=== PATIENT | male | born 1940 | race Caucasian/White ===

== ENCOUNTER → 2018-03-07 07:54 | Outpatient (CLI) | payer MEDICARE, OTHER, SELFPAY ==
[2018-03-07 09:28] LABS: ALB/GLOB Ratio 1.3 RATIO (0.9-2.4); AST(SGOT) 36 U/L (15-37); Alanine Aminotransfer ALT/SGPT 38 U/L (16-61); Albumin, Serum 4.1 g/dL (3.2-5.0); Alkaline Phosphatase 52 U/L (45-117); Anion Gap 8 (5-15); BUN 10 mg/dL (7-18); BUN/Creat Ratio 14.7 RATIO (10-20); Calcium,Total 8.3 mg/dL (8.5-10.1); Chloride 105 mmol/L (98-107); Cholesterol 133 mg/dL (200); Creatinine, Serum 0.68 mg/dL (0.70-1.30); EST Glomerular Filtration Rate 121 mL/min (>60); Est Glom Filt Rate - Afr Amer 146 mL/min (>60); Globulin 3.1 g/dL (2.2-4.2); Glucose 85 mg/dL (74-106); High Density Lipoprotein 46 mg/dL; Potassium 3.8 mmol/L (3.5-5.1); Protein, Total 7.2 g/dL (6.4-8.2); Sodium Level 142 mmol/L (136-145); Triglycerides 121 mg/dL; Very Low Density Lipoprotein 24 mg/dL (5-40)
[2018-03-07 10:11] LABS: Hemoglobin A1c 8.1 % (4.2-6.3)
== END ==
PROVIDERS: Family Provider Family Medicine; PCP Family Medicine; Visit Provider Family Medicine
DX: E11.9 Type 2 diabetes mellitus without complications (principal); E78.5 Hyperlipidemia, unspecified; I10 Essential (primary) hypertension
CPT/HCPCS: 36415; 80053; 80061; 83036

== ENCOUNTER → 2018-06-14 08:07 | Outpatient (CLI) | payer MEDICARE, OTHER, SELFPAY ==
[2018-06-14 09:17] LABS: Hemoglobin A1c 8.3 % (4.2-6.3)
== END ==
PROVIDERS: Family Provider Family Medicine; PCP Family Medicine; Visit Provider Family Medicine
DX: E11.9 Type 2 diabetes mellitus without complications (principal); Z79.4 Long term (current) use of insulin
CPT/HCPCS: 36415; 83036

== ENCOUNTER → 2018-09-09 08:42 | Outpatient (CLI) | payer MEDICARE, OTHER, SELFPAY ==
[2018-09-09 09:49] LABS: Hemoglobin A1c 7.8 % (4.2-6.3)
[2018-09-09 10:03] LABS: Microalbumin,Random Urine 51.4 mg/L (NO RANGE EST.); Microalbumin:Creatinine Ratio 31.3 mg/g CRE (<30 mg/g CRE)
[2018-09-09 10:04] LABS: ALB/GLOB Ratio 1.2 RATIO (0.9-2.4); AST(SGOT) 24 U/L (15-37); Alanine Aminotransfer ALT/SGPT 35 U/L (16-61); Albumin, Serum 3.8 g/dL (3.2-5.0); Alkaline Phosphatase 53 U/L (45-117); Anion Gap 7 (5-15); BUN 10 mg/dL (7-18); Calcium,Total 8.7 mg/dL (8.5-10.1); Chloride 103 mmol/L (98-107); Creatinine, Serum 0.77 mg/dL (0.70-1.30); EST Glomerular Filtration Rate 105 mL/min (>60); Est Glom Filt Rate - Afr Amer 127 mL/min (>60); Globulin 3.3 g/dL (2.2-4.2); Glucose 184 mg/dL (74-106); Potassium 4.4 mmol/L (3.5-5.1); Protein, Total 7.1 g/dL (6.4-8.2); Sodium Level 140 mmol/L (136-145)
== END ==
PROVIDERS: Family Provider Family Medicine; PCP Family Medicine; Referring Provider Family Medicine; Visit Provider Family Medicine
DX: E11.9 Type 2 diabetes mellitus without complications (principal); Z79.4 Long term (current) use of insulin
CPT/HCPCS: 36415; 80053; 82043; 82570; 83036

== ENCOUNTER → 2019-02-22 09:00 | Outpatient (CLI) | payer MEDICARE, OTHER, SELFPAY ==
[2019-02-22 10:11] LABS: Hemoglobin A1c 7.9 % (4.2-6.3)
[2019-02-22 10:36] LABS: ALB/GLOB Ratio 1.3 RATIO (0.9-2.4); AST(SGOT) 42 U/L (15-37); Alanine Aminotransfer ALT/SGPT 42 U/L (16-61); Alkaline Phosphatase 55 U/L (45-117); Anion Gap 6 (5-15); BUN 7 mg/dL (7-18); BUN/Creat Ratio 9.4 RATIO (10-20); Calcium,Total 8.5 mg/dL (8.5-10.1); Chloride 107 mmol/L (98-107); Cholesterol 125 mg/dL (200); Creatinine, Serum 0.74 mg/dL (0.70-1.30); EST Glomerular Filtration Rate 109 mL/min (>60); Est Glom Filt Rate - Afr Amer 131 mL/min (>60); Globulin 3.1 g/dL (2.2-4.2); Glucose 116 mg/dL (74-106); High Density Lipoprotein 46 mg/dL; Potassium 3.9 mmol/L (3.5-5.1); Protein, Total 7.1 g/dL (6.4-8.2); Sodium Level 140 mmol/L (136-145); Triglycerides 111 mg/dL; Very Low Density Lipoprotein 22 mg/dL (5-40)
== END ==
PROVIDERS: Family Provider Family Medicine; PCP Family Medicine; Referring Provider Family Medicine; Visit Provider Family Medicine
DX: E78.2 Mixed hyperlipidemia (principal); E11.9 Type 2 diabetes mellitus without complications; Z79.4 Long term (current) use of insulin
CPT/HCPCS: 36415; 80053; 80061; 83036

== ENCOUNTER → 2019-03-17 09:31 | Outpatient (CLI) | payer MEDICARE, OTHER, SELFPAY ==
[2019-03-17 10:15] LABS: Amphetamine Urine VISTA NEGATIVE (<1000 ng/mL); Barbiturate Urine VISTA NEGATIVE (< 200 ng/mL); Benzodiazepine Urine VISTA NEGATIVE (< 200 ng/mL); Cocaine Urine VISTA NEGATIVE (< 300 ng/mL); Ecstacy Urine VISTA NEGATIVE (< 500 ng/mL); Methadone Urine VISTA NEGATIVE (< 300 ng/mL); PCP Urine VISTA NEGATIVE (< 25 ng/mL); THC Urine VISTA NEGATIVE (< 50 ng/mL); Vista UDS pH Range 5
== END ==
PROVIDERS: Family Provider Family Medicine; PCP Family Medicine; Referring Provider Family Medicine; Visit Provider Family Medicine
DX: M48.061 Spinal stenosis, lumbar region without neurogenic claudication (principal); Z51.81 Encounter for therapeutic drug level monitoring
CPT/HCPCS: 80307

== ENCOUNTER 2019-04-08 21:29 | Emergency (ER) | payer MEDICARE, OTHER, SELFPAY ==
[2019-04-08 21:29] VITALS: BP 160/82; PULSE 101; RESP 18; TEMP 36.9; O2SAT 94; BMI 34.0
--- NOTE | 2019-04-08 22:08 | CT_ITS ---
STUDY: CT ABDOMEN AND PELVIS WITHOUT CONTRAST REASON FOR EXAM: Male, 78 years old. Abdominal pain and bloating RADIATION DOSAGE (If Supplied By Facility): CTDIvol = ( 17.71 ) mGy, DLP = ( 947.12 ) mGycm TECHNIQUE: Transaxial images were obtained from the dome of the diaphragm to the symphysis pubis without oral contrast, and without intravenous contrast. Sagittal and coronal images were reconstructed. Individualized dose optimization techniques were used for this CT. COMPARISON: None. FINDINGS: The visualized lung bases are unremarkable. The visualized portions of the heart are within normal limits. There is decreased attenuation of the liver consistent with steatosis. Normal gallbladder and extrahepatic biliary system. There are multiple benign calcified granulomata of the spleen. Normal pancreas. 15 mm left adrenal adenoma. Bilateral renal cysts. Normal visualized stomach. 17 mm duodenal diverticulum. There are multiple colonic diverticula consistent with diverticulosis. The appendix is visualized and appears normal. Normal abdominal aorta. Normal inferior vena cava. Normal retroperitoneum. Normal urinary bladder. Prostatomegaly and prostate calcifications. Normal abdominal wall. Normal osseous structures. CT/Abdomen/Pelvis without Cont IMPRESSION: No evidence of acute intestinal pathology or acute obstructive uropathy. 15 mm left adrenal adenoma. 17 mm duodenal diverticulum. Electronically Signed: Harrison Grove MD at 23:13 EDT Tel , Service support ,
--- NOTE | 2019-04-08 22:09 | ED.VISSUMM ---
- ER Visit Summary Date of Service: 04/08/19 Chief Complaint: Abdominal pain History of Present Illness: The patient is a 78 M who presents with abdominal pain that has been getting worse over the past 3 days. Patient states he has been having some nausea and vomiting over the past week. Patient denies any hematemesis or coffee-ground emesis. Patient denies any diarrhea, melena, or hematochezia. Patient states his pain is dull and aching. Patient states his pain is cramping at times. Patient admits to subjective fevers and chills. Patient states his pain is diffuse across his abdomen. Patient states he had similar symptoms while he was in [place] several months ago but was never evaluated at that time. Physical Examination: Vital signs are stable. Patient is afebrile. Patient is in no acute distress. Oral mucosa is pink and moist. Neck is supple. Trachea is midline. There is no JVD noted. Heart was regular rate and rhythm. Lungs are clear and equal bilateral. Abdomen is soft. Bowel sounds are normal. There is mild diffuse tenderness. There is no rebound or guarding noted. Skin is warm dry. Cranial nerves II through XII are intact. There are no focal motor or sensory deficits noted. The remaining physical exam is within normal limits. Test Results: CBC was normal. Comprehensive metabolic profile showed an elevated glucose of 342. Total bilirubin was slightly elevated at 1.6. AST and ALT were both slightly elevated at 94 and 100 respectively. Urinalysis does not show any evidence of urinary tract infection. CT scan of the abdomen and pelvis was obtained. There is no acute intra-abdominal pathology noted. Emergency Department Course and Treatment: Patient was given IV fluids and Zofran here. Patient felt better on reevaluation. Patient was instructed to eat a bland diet. Patient was instructed to follow-up with his primary care physician in 3 to 5 days. Patient and family understood and were agreeable with the plan. All questions were answered. Disposition: Discharge home Impression: Abdominal pain This note was generated with [employer] dictation software. It may contain incorrect words, spelling, and punctuation that were not noted in review of the chart prior to signing ED Disposition - Plan for ED Patient: Disposition: Home or Assisted Living Diagnosis: Abdominal pain Instructions: ED Abdominal Pain Unkn Cause Referrals: Harrison Doss MD [Primary Care Provider] - 3-5 Days
[2019-04-08 22:19] LABS: Red Blood Cells-Urine 0 SEEN /hpf (0-5); White Blood Cells 0 SEEN /hpf (0-5)
[2019-04-08] MEDS: Ondansetron 4 MG/2 ML Vial IV (22:21)
[2019-04-08] MEDS: 0.9% Normal Saline 1,000 ML 1000 ML IV (22:21)
[2019-04-08 22:26] LABS: Absolute Lymphocyte Count 0.94 X10^3/ul (0.83-4.51); Absolute Neutrophil Count 4.8 X10^3/uL (2.0-7.7); Basophil# 0.02 X10^3/uL; Basophil% 0.3 % (0-1); Eosinophil# 0.18 X10^3/uL; Eosinophils% 2.5 % (0-5); Hematocrit 41.6 % (40-54); Hemoglobin 14.8 g/dl (13.0-16.5); Lymphocyte # 0.94 X10^3/ul (4.0); Lymphocyte % 13.1 % (19-41); Mean Corp Hgb Conc 35.6 g/gl (32-36); Mean Corpuscular Hgb 31.6 pg (27.0-32.0); Mean Corpuscular Volume 88.9 fL (80-94); Mean Platelet Vol. 10.3 fl (6.2-12.0); Monocyte# 1.22 X10^3/uL; Monocyte% 16.9 % (0-10); Neutrophil # 4.83 X10^3/uL (2.7-7.7); Neutrophil % 67.1 % (47-70); Platelet Count 171 K/mm3 (150-450); RBC Distribution Width CV 12.3 % (11.6-14.6); RBC Distribution Width SD 39.5 fl (35.1-43.9); Red Blood Count 4.68 M/mm3 (4.6-6.2); White Blood Count 7.2 K/mm3 (4.4-11.0)
[2019-04-08 22:27] LABS: Color, Urine Yellow (Yellow); Glucose, Dipstick 1000 mg/dl (Normal); Ketone-Dipstick 5 mg/dl (Negative); Leukocyte Esterase-Dipstick Negative /ul (Negative); Nitrite-Dipstick Negative (Negative); Occult Blood-Urine 10 /ul (Negative); Protein-Dipstick 30 mg/dl (Negative); Specific Gravity, Urine 1.015 (1.002-1.030); Urine Bilirubin Dipstick Negative (Negative); Urine Clarity Clear (Clear); Urine Urobilinogen 4 mg/dl (Normal)
[2019-04-08 22:28] LABS: POSITIVE COUNT NO; POSITIVE DIFFERENTIAL NO; POSITIVE MORPHOLOGY NO
[2019-04-08 22:28] LABS: Squamous Epithelial Cells - UA 0-5 SEEN /hpf (0-5)
[2019-04-08 22:29] LABS: Bacteria RARE /hpf (None Seen); Mucous, Urine RARE /hpf (<or=2+)
[2019-04-08 22:36] LABS: ALB/GLOB Ratio 0.8 RATIO (0.9-2.4); AST(SGOT) 94 U/L (15-37); Alanine Aminotransfer ALT/SGPT 100 U/L (16-61); Albumin, Serum 3.4 g/dL (3.2-5.0); Alkaline Phosphatase 96 U/L (45-117); Anion Gap 9 (5-15); BUN 12 mg/dL (7-18); BUN/Creat Ratio 11.9 RATIO (10-20); Chloride 97 mmol/L (98-107); Creatinine, Serum 1.01 mg/dL (0.70-1.30); EST Glomerular Filtration Rate 76 mL/min (>60); Est Glom Filt Rate - Afr Amer 92 mL/min (>60); Estimated Creatinine Clearance 62.22 ml/min; Globulin 4.5 g/dL (2.2-4.2); Glucose 342 mg/dL (74-106); Lipase 321 U/L (73-393); Potassium 4.2 mmol/L (3.5-5.1); Protein, Total 7.9 g/dL (6.4-8.2); Sodium Level 136 mmol/L (136-145)
[2019-04-08 23:47] VITALS: BP 148/67; PULSE 63; RESP 19; O2SAT 98
== END 2019-04-08 23:48 | disposition home or self-care (01) ==
PROVIDERS: Emergency Provider Emergency Medicine; Family Provider Family Medicine; PCP Family Medicine
DX: R10.9 Unspecified abdominal pain (principal); R11.2 Nausea with vomiting, unspecified; I10 Essential (primary) hypertension; E11.9 Type 2 diabetes mellitus without complications; Z79.4 Long term (current) use of insulin; Z79.84 Long term (current) use of oral hypoglycemic drugs; Z79.899 Other long term (current) drug therapy
CPT/HCPCS: 74176; 80053; 81001; 83690; 85025; 96361; 96374; 99284; A4216; J2405

== ENCOUNTER 2019-04-12 11:06 | Emergency (ER) | payer MEDICARE, OTHER, SELFPAY ==
[2019-04-12 11:07] VITALS: BP 106/71; PULSE 103; RESP 16; TEMP 36.8; O2SAT 96; BMI 33.9
--- NOTE | 2019-04-12 11:46 | US_ITS ---
STUDY: ABDOMINAL ULTRASOUND - RIGHT UPPER QUADRANT REASON FOR VISIT: Male, 78 years old. One-week history of generalized abdominal pain. TECHNIQUE: Ultrasound evaluation of the right upper quadrant was performed with real-time and static oglesby-scale imaging. TECHNICAL QUALITY: Adequate. COMPARISON: Comparison is made with prior CT scan the abdomen dated April 08, 2019. FINDINGS: Liver: The liver is enlarged and measures 19.3 cm. There is increased echogenicity consistent with fatty infiltration. The bile ducts are within normal limits. There is hepatic color flow. The direction of portal flow is hepatopetal. There is no demonstrated mass lesion. Gallbladder: Normal distended gallbladder. The gallbladder wall measures 2.9 mm. There is a negative sonographic Reardon's sign. There is no pericholecystic fluid. There are no gallstones. Common Bile Duct (C.B.D.): The common bile duct measures 4.6 mm. Pancreas: There is nonvisualization of the pancreas due to overlying bowel gas. Right Kidney: Normal size of the right kidney. The right kidney measures 11.9 cm x 5.8 cm x 5.9 cm. Normal renal cortex. The right cortex measures 2.0 cm. There is a 2.1 cm x 2.2 cm x 2.2 cm cyst. There is no right hydronephrosis. US/Gallbladder IMPRESSION: Hepatomegaly and fatty infiltration of the liver. Right renal cyst. Electronically Signed: Valentin Cordon, at 13:03 EDT , Service support ,
--- NOTE | 2019-04-12 11:47 | EKG12_ITS ---
Test Reason : VOMITTING Blood Pressure : / mmHG Vent. Rate : 077 BPM Atrial Rate : 077 BPM P-R Int : 180 ms QRS Dur : 080 ms QT Int : 398 ms P-R-T Axes : 032 041 052 degrees QTc Int : 450 ms Normal sinus rhythm Nonspecific ST abnormality Abnormal ECG Confirmed by MILES MISHRA ([id number]), editorial director ERICK IZAGUIRRE ([id number]) on 04/20/2019 9:23:43 AM Referred By: ARTHUR Confirmed By:MILES MISHRA
[2019-04-12] MEDS: 0.9% Normal Saline 1,000 ML 1000 ML IV (12:04)
[2019-04-12 12:08] LABS: Absolute Lymphocyte Count 0.64 X10^3/ul (0.83-4.51); Absolute Neutrophil Count 4.4 X10^3/uL (2.0-7.7); Basophil# 0.02 X10^3/uL; Basophil% 0.3 % (0-1); Eosinophil# 0.26 X10^3/uL; Eosinophils% 4.1 % (0-5); Hematocrit 40.5 % (40-54); Hemoglobin 14.2 g/dl (13.0-16.5); Lymphocyte # 0.64 X10^3/ul (4.0); Lymphocyte % 10.1 % (19-41); Mean Corp Hgb Conc 35.1 g/gl (32-36); Mean Corpuscular Hgb 30.9 pg (27.0-32.0); Mean Platelet Vol. 10.1 fl (6.2-12.0); Monocyte# 0.95 X10^3/uL; Monocyte% 15.1 % (0-10); Neutrophil # 4.43 X10^3/uL (2.7-7.7); Neutrophil % 70.2 % (47-70); POSITIVE COUNT NO; POSITIVE DIFFERENTIAL NO; POSITIVE MORPHOLOGY NO; Platelet Count 221 K/mm3 (150-450); RBC Distribution Width CV 12.1 % (11.6-14.6); RBC Distribution Width SD 38.6 fl (35.1-43.9); White Blood Count 6.3 K/mm3 (4.4-11.0)
[2019-04-12 12:11] VITALS: BP 135/73; PULSE 82; RESP 16; O2SAT 97
[2019-04-12 12:14] LABS: Red Blood Cells-Urine 0 SEEN /hpf (0-5)
[2019-04-12 12:16] LABS: Color, Urine Yellow (Yellow); Glucose, Dipstick 250 mg/dl (Normal); Ketone-Dipstick 15 mg/dl (Negative); Leukocyte Esterase-Dipstick 25 /ul (Negative); Nitrite-Dipstick Negative (Negative); Occult Blood-Urine Negative /ul (Negative); Protein-Dipstick 30 mg/dl (Negative); Specific Gravity, Urine 1.025 (1.002-1.030); Urine Clarity Sl. Cloudy (Clear); Urine Urobilinogen 8 mg/dl (Normal)
[2019-04-12 12:18] LABS: Urine Bilirubin Dipstick 1 mg/dL (Negative)
[2019-04-12 12:21] LABS: Bedside Glucose 221 mg/dL (70-110)
[2019-04-12 12:28] LABS: ALB/GLOB Ratio 0.8 RATIO (0.9-2.4); AST(SGOT) 26 U/L (15-37); Alanine Aminotransfer ALT/SGPT 50 U/L (16-61); Albumin, Serum 3.1 g/dL (3.2-5.0); Alkaline Phosphatase 85 U/L (45-117); Anion Gap 8 (5-15); BUN 14 mg/dL (7-18); BUN/Creat Ratio 14.8 RATIO (10-20); Calcium,Total 8.7 mg/dL (8.5-10.1); Chloride 99 mmol/L (98-107); Creatinine, Serum 0.94 mg/dL (0.70-1.30); EST Glomerular Filtration Rate 82 mL/min (>60); Est Glom Filt Rate - Afr Amer 100 mL/min (>60); Estimated Creatinine Clearance 66.86 ml/min; Globulin 4.1 g/dL (2.2-4.2); Glucose 253 mg/dL (74-106); Lipase 75 U/L (73-393); Potassium 4.4 mmol/L (3.5-5.1); Protein, Total 7.2 g/dL (6.4-8.2); Sodium Level 136 mmol/L (136-145)
[2019-04-12 12:29] LABS: Bacteria 1+ /hpf (None Seen); Mucous, Urine 2+ /hpf (<or=2+); Squamous Epithelial Cells - UA 0-5 SEEN /hpf (0-5); White Blood Cells 0-5 SEEN /hpf (0-5)
--- NOTE | 2019-04-12 13:02 | ED.VISSUMM ---
- ER Visit Summary Date of Service: 04/12/19 Chief Complaint: Abdominal pain History of Present Illness: The patient is a [address] Doss. Patient reports that he had an episode of abdominal pain 4 days ago that actually resolved 3 days ago. However, he has continued to have a poor appetite now feels generalized weakness. States his blood sugars been running high as well. Typically it is 120. Yesterday it was 421. Patient denies any nausea, vomiting, or diarrhea. He denies any history of fatty food intolerance. He does report that he had a cough for the past 8 days. This is nonproductive. He has no chest pain or shortness of breath. Physical Examination: Vitals: Stable. Afebrile. General: Well-nourished and well-developed. Head: Normocephalic atraumatic. Neck: Supple, no lymphadenopathy. No JVD. Nontender. Cardiovascular: Regular rate and rhythm. No murmurs. Respiratory: No respiratory distress. Clear to auscultation bilaterally. Abdominal: Soft, minimal tenderness to palpation in the right upper quadrant, nondistended, normal bowel sounds. No guarding, rebound, or peritoneal signs. Back: Nontender. Extremities: Nontender, no edema. Skin: Normal color, no rash. Neurologic: Alert and oriented ?3. Cranial nerves II through XII are intact. Normal strength and sensation. Psych: Normal affect. Test Results: CBC shows segmented neutrophils of 70, lymphocytes of 10, monocytes 15. Chem-7 shows a glucose 253. Serum ketones are negative. LFTs are marked for an albumin 3.1. Lipase is normal. UA is negative. Troponin is negative. EKG is sinus at [address] changes. Unchanged from prior EKG. Clinical Impression(s) from Imaging Studies Gallbladder Ultrasound 04/12/19 11:46 IMPRESSION: Hepatomegaly and fatty infiltration of the liver. Right renal cyst. Electronically Signed: Valentin Cordon, at 13:03 EDT , Service support , Emergency Department Course and Treatment: Patient refused pain or nausea medications. He was given a liter of normal saline and feels much improved. Treatment Plan: Discussed the patient at this time I do not have an explanation for his loss of appetite and food not tasting normal. He will be discharged instructions to push fluids. Follow-up Dr. Doss in 1 to 2 days for another exam. Return to the emergency department for any worsening symptoms. Disposition: To home in improved and stable condition. Impression: 1. Dehydration. 2. Hyperglycemia with history of [id number] diabetes mellitus. This note was generated with [employer] dictation software. It may contain incorrect words, spelling, and punctuation that were not noted in review of the chart prior to signing ED Disposition - Plan for ED Patient: Instructions: ED Dehydration Referrals: Harrison Doss MD [Primary Care Provider] - 1-2 Days if not improving
[2019-04-12 14:54] VITALS: BP 136/71; PULSE 72; RESP 18; O2SAT 98
== END 2019-04-12 14:55 | disposition home or self-care (01) ==
PROVIDERS: Emergency Provider Emergency Medicine; Family Provider Family Medicine; PCP Family Medicine
DX: E86.0 Dehydration (principal); E10.65 Type 1 diabetes mellitus with hyperglycemia; I10 Essential (primary) hypertension; Z79.82 Long term (current) use of aspirin; Z79.84 Long term (current) use of oral hypoglycemic drugs; Z79.899 Other long term (current) drug therapy
CPT/HCPCS: 76705; 80053; 81001; 82009; 82962; 83690; 84484; 85025; 93005; 96360; 96361; 99284; J7030; A4216

== ENCOUNTER → 2019-09-26 08:31 | Outpatient (CLI) | payer MEDICARE, OTHER, SELFPAY ==
[2019-09-26 10:01] LABS: ALB/GLOB Ratio 1.1 RATIO (0.9-2.4); AST(SGOT) 36 U/L (15-37); Alanine Aminotransfer ALT/SGPT 42 U/L (16-61); Alkaline Phosphatase 55 U/L (45-117); Anion Gap 9 (5-15); BUN 10 mg/dL (7-18); BUN/Creat Ratio 11.4 RATIO (10-20); Calcium,Total 8.7 mg/dL (8.5-10.1); Chloride 103 mmol/L (98-107); Cholesterol 132 mg/dL (200); Creatinine, Serum 0.87 mg/dL (0.70-1.30); EST Glomerular Filtration Rate 90 mL/min (>60); Est Glom Filt Rate - Afr Amer 109 mL/min (>60); Globulin 3.5 g/dL (2.2-4.2); Glucose 197 mg/dL (74-106); High Density Lipoprotein 43 mg/dL; Potassium 4.1 mmol/L (3.5-5.1); Protein, Total 7.5 g/dL (6.4-8.2); Sodium Level 139 mmol/L (136-145); Triglycerides 173 mg/dL; Very Low Density Lipoprotein 35 mg/dL (5-40)
[2019-09-26 10:06] LABS: Hemoglobin A1c 8.4 % (4.2-6.3)
== END ==
LOC: LAB.FUTURE 08:36 → LAB 09-27 06:19
PROVIDERS: Family Provider Family Medicine; PCP Family Medicine; Referring Provider Family Medicine; Visit Provider Family Medicine
DX: E11.9 Type 2 diabetes mellitus without complications (principal); Z79.4 Long term (current) use of insulin; E78.2 Mixed hyperlipidemia
CPT/HCPCS: 36415; 80053; 80061; 83036

== ENCOUNTER → 2020-05-22 08:39 | Outpatient (CLI) | payer MEDICARE, OTHER, SELFPAY ==
[2020-05-22 09:36] LABS: Hemoglobin A1c 8.6 % (3.8-5.6)
[2020-05-22 09:44] LABS: ALB/GLOB Ratio 1.2 RATIO (0.9-2.4); AST(SGOT) 29 U/L (15-37); Alanine Aminotransfer ALT/SGPT 46 U/L (16-61); Albumin, Serum 3.9 g/dL (3.2-5.0); Alkaline Phosphatase 53 U/L (45-117); Anion Gap 7 (5-15); BUN 13 mg/dL (7-18); BUN/Creat Ratio 15.5 RATIO (10-20); Calcium,Total 8.7 mg/dL (8.5-10.1); Chloride 103 mmol/L (98-107); Creatinine, Serum 0.84 mg/dL (0.70-1.30); EST Glomerular Filtration Rate 94 mL/min (>60); Est Glom Filt Rate - Afr Amer 114 mL/min (>60); Globulin 3.3 g/dL (2.2-4.2); Glucose 126 mg/dL (74-106); Potassium 4.1 mmol/L (3.5-5.1); Protein, Total 7.2 g/dL (6.4-8.2); Sodium Level 140 mmol/L (136-145)
== END ==
PROVIDERS: PCP Family Medicine; Visit Provider Family Medicine
DX: E11.9 Type 2 diabetes mellitus without complications (principal); Z79.4 Long term (current) use of insulin
CPT/HCPCS: 36415; 80053; 83036

== ENCOUNTER → 2020-08-27 07:58 | Outpatient (CLI) | payer MEDICARE, OTHER, SELFPAY ==
[2020-08-27 08:58] LABS: Absolute Lymphocyte Count 1.39 X10^3/uL (0.83-4.51); Absolute Neutrophil Count 3.3 X10^3/uL (2.0-7.7); Basophil# 0.05 X10^3/uL; Basophil% 0.9 % (0-1); Eosinophil# 0.21 X10^3/uL; Eosinophils% 3.7 % (0-5); Hematocrit 44.7 % (40-54); Hemoglobin 15.2 g/dL (13.0-16.5); Lymphocyte # 1.39 X10^3/ul (4.0); Lymphocyte % 24.7 % (19-41); Mean Corpuscular Hgb 30.5 pg (27.0-32.0); Mean Corpuscular Volume 89.8 fL (80-94); Monocyte# 0.63 X10^3/uL; Monocyte% 11.2 % (0-10); NRBC Flagged by Analyzer 0 % (0-5); Neutrophil # 3.33 X10^3/uL (2.7-7.7); Neutrophil % 59.3 % (47-70); Platelet Count 217 K/mm3 (150-450); RBC Distribution Width CV 11.8 % (11.6-14.6); RBC Distribution Width SD 38.8 fl (35.1-43.9); Red Blood Count 4.98 M/mm3 (4.6-6.2); White Blood Count 5.6 K/mm3 (4.4-11.0)
[2020-08-27 09:25] LABS: Microalbumin,Random Urine 60.7 mg/L (NO RANGE EST.); Microalbumin:Creatinine Ratio 45.3 mg/g CRE (<30 mg/g CRE)
[2020-08-27 09:29] LABS: Cholesterol 132 mg/dL (200); High Density Lipoprotein 47 mg/dL; Triglycerides 144 mg/dL; Very Low Density Lipoprotein 29 mg/dL (5-40)
[2020-08-27 09:39] LABS: Hemoglobin A1c 7.8 % (3.8-5.6)
== END ==
PROVIDERS: PCP Family Medicine; Referring Provider Family Medicine; Visit Provider Family Medicine
DX: E11.9 Type 2 diabetes mellitus without complications (principal); Z79.4 Long term (current) use of insulin
CPT/HCPCS: 36415; 80061; 82043; 82570; 83036; 85025

== ENCOUNTER → 2021-02-27 08:52 | Outpatient (CLI) | payer MEDICARE, SELFPAY ==
[2021-02-27 09:54] LABS: Hemoglobin A1c 6.7 % (3.8-5.6)
[2021-02-27 10:09] LABS: Anion Gap 5 (5-15); BUN 9 mg/dL (7-18); BUN/Creat Ratio 11.6 RATIO (10-20); Chloride 107 mmol/L (98-107); Creatinine, Serum 0.78 mg/dL (0.70-1.30); EST Glomerular Filtration Rate 103 mL/min (>60); Est Glom Filt Rate - Afr Amer 124 mL/min (>60); Glucose 139 mg/dL (74-106); Potassium 3.8 mmol/L (3.5-5.1); Sodium Level 140 mmol/L (136-145)
== END ==
PROVIDERS: PCP Family Medicine; Visit Provider Family Medicine
DX: E11.9 Type 2 diabetes mellitus without complications (principal); Z79.4 Long term (current) use of insulin
CPT/HCPCS: 36415; 80048; 83036

== ENCOUNTER → 2021-09-16 07:32 | Outpatient (CLI) | payer MEDICARE, SELFPAY ==
[2021-09-16 08:44] LABS: Absolute Lymphocyte Count 1.28 X10^3/uL (0.83-4.51); Absolute Neutrophil Count 2.9 X10^3/uL (2.0-7.7); Basophil# 0.04 X10^3/uL; Basophil% 0.8 % (0-1); Eosinophil# 0.23 X10^3/uL; Eosinophils% 4.7 % (0-5); Lymphocyte # 1.28 X10^3/ul (0.83-4.51); Mean Corp Hgb Conc 34.1 g/dL (32-36); Mean Corpuscular Hgb 31.8 pg (27.0-32.0); Mean Corpuscular Volume 93.2 fL (80-94); Mean Platelet Vol. 9.8 fl (6.2-12.0); Monocyte# 0.48 X10^3/uL; Monocyte% 9.7 % (0-10); NRBC Flagged by Analyzer 0 % (0-5); Neutrophil # 2.89 X10^3/uL (2.7-7.7); Neutrophil % 58.6 % (47-70); Platelet Count 188 K/mm3 (150-450); RBC Distribution Width CV 11.8 % (11.6-14.6); RBC Distribution Width SD 40.7 fl (35.1-43.9); White Blood Count 4.9 K/mm3 (4.4-11.0)
[2021-09-16 09:06] LABS: Microalbumin,Random Urine 64.4 mg/L (NO RANGE EST.); Microalbumin:Creatinine Ratio 25.8 mg/g CRE (<30 mg/g CRE)
[2021-09-16 09:18] LABS: Hemoglobin A1c 6.5 % (3.8-5.6)
[2021-09-16 09:21] LABS: ALB/GLOB Ratio 1.1 RATIO (0.9-2.4); AST(SGOT) 23 U/L (15-37); Alanine Aminotransfer ALT/SGPT 29 U/L (16-61); Albumin, Serum 3.7 g/dL (3.2-5.0); Alkaline Phosphatase 50 U/L (45-117); Anion Gap 8 (5-15); BUN 10 mg/dL (7-18); BUN/Creat Ratio 11.2 RATIO (10-20); Calcium,Total 8.5 mg/dL (8.5-10.1); Chloride 105 mmol/L (98-107); Cholesterol 121 mg/dL (200); Creatinine, Serum 0.89 mg/dL (0.70-1.30); EST Glomerular Filtration Rate 88 mL/min (>60); Est Glom Filt Rate - Afr Amer 106 mL/min (>60); Globulin 3.4 g/dL (2.2-4.2); Glucose 103 mg/dL (74-106); High Density Lipoprotein 41 mg/dL; Potassium 3.7 mmol/L (3.5-5.1); Protein, Total 7.1 g/dL (6.4-8.2); Sodium Level 143 mmol/L (136-145); Triglycerides 120 mg/dL; Very Low Density Lipoprotein 24 mg/dL (5-40)
== END ==
PROVIDERS: PCP Family Medicine; Referring Provider Family Medicine; Visit Provider Family Medicine
DX: E11.9 Type 2 diabetes mellitus without complications (principal); Z79.4 Long term (current) use of insulin
CPT/HCPCS: 36415; 80053; 80061; 82043; 82570; 83036; 85025

== ENCOUNTER → 2022-03-17 | Outpatient (CLI) | payer MEDICARE, SELFPAY ==
[2022-03-17 09:20] LABS: Absolute Lymphocyte Count 1.18 X10^3/uL (0.83-4.51); Absolute Neutrophil Count 3.6 X10^3/uL (2.0-7.7); Basophil# 0.03 X10^3/uL; Basophil% 0.5 % (0-1); Eosinophils% 3.6 % (0-5); Hematocrit 40.9 % (40-54); Hemoglobin 14.1 g/dL (13.0-16.5); Lymphocyte # 1.18 X10^3/ul (0.83-4.51); Lymphocyte % 21.5 % (19-41); Mean Corp Hgb Conc 34.5 g/dL (32-36); Mean Corpuscular Hgb 32.4 pg (27.0-32.0); Mean Platelet Vol. 10.1 fl (6.2-12.0); Monocyte# 0.45 X10^3/uL; Monocyte% 8.2 % (0-10); NRBC Flagged by Analyzer 0 % (0-5); Neutrophil # 3.62 X10^3/uL (2.7-7.7); Platelet Count 194 K/mm3 (150-450); RBC Distribution Width CV 12.6 % (11.6-14.6); RBC Distribution Width SD 43.7 fl (35.1-43.9); Red Blood Count 4.35 M/mm3 (4.6-6.2); White Blood Count 5.5 K/mm3 (4.4-11.0)
[2022-03-17 09:39] LABS: Hemoglobin A1c 6.6 % (3.8-5.6)
[2022-03-17 09:43] LABS: Microalbumin,Random Urine 46.4 mg/L (NO RANGE EST.); Microalbumin:Creatinine Ratio 28.8 mg/g CRE (<30 mg/g CRE)
[2022-03-17 09:56] LABS: ALB/GLOB Ratio 1.2 RATIO (0.9-2.4); AST(SGOT) 17 U/L (15-37); Alanine Aminotransfer ALT/SGPT 20 U/L (16-61); Albumin, Serum 3.9 g/dL (3.2-5.0); Alkaline Phosphatase 49 U/L (45-117); Anion Gap 6 (5-15); BUN 7 mg/dL (7-18); BUN/Creat Ratio 7.8 RATIO (10-20); Calcium,Total 8.7 mg/dL (8.5-10.1); Chloride 105 mmol/L (98-107); Cholesterol 123 mg/dL (200); Creatinine, Serum 0.89 mg/dL (0.70-1.30); EST Glomerular Filtration Rate 87 mL/min (>60); Est Glom Filt Rate - Afr Amer 105 mL/min (>60); Globulin 3.3 g/dL (2.2-4.2); Glucose 115 mg/dL (74-106); High Density Lipoprotein 41 mg/dL; Protein, Total 7.2 g/dL (6.4-8.2); Sodium Level 139 mmol/L (136-145); Triglycerides 138 mg/dL; Very Low Density Lipoprotein 28 mg/dL (5-40)
== END | disposition home or self-care (01) ==
LOC: LAB 08:11
PROVIDERS: PCP Family Medicine; Referring Provider Family Medicine; Visit Provider Family Medicine
DX: E11.9 Type 2 diabetes mellitus without complications (principal); Z79.4 Long term (current) use of insulin
CPT/HCPCS: 36415; 80053; 80061; 82043; 82570; 83036; 85025

== ENCOUNTER 2024-12-03 14:43 | Inpatient (IN) | payer MEDICARE, SELFPAY ==
[2024-12-03 14:46] VITALS: BP 119/73; PULSE 102; RESP 18; TEMP 36.4; O2SAT 97; BMI 30.8
--- NOTE | 2024-12-03 15:04 | EDS_ITS ---
HPI History of Present Illness Chief Complaint: Hyperglycemia Informant: patient Onset/Context/Timing Onset: Today Context: Gradual Onset Timing: Continuous Quality: Weakness Location: Lower extremities, left worse than right Worsened by: Activity Relieved by: Rest Narrative Narrative: Patient presents with lower extremity weakness that began today. Patient states his left leg gave out. Patient states he fell. Daughter states that the patient's blood sugar was 353 when he fell. Patient admits to some nausea but denies any vomiting. Patient states his nausea began last night. Patient states he has also had a recent cough with some white sputum. Patient admits to some shortness of breath with exertion. Patient denies any fevers or chills. Patient denies any headaches. Patient denies any polyuria or polydipsia. [facility] Medical History (Updated 12/03/24 @ 18:[address] Wolfgang Rosa, DO) Lumbar spondylosis GERD (gastroesophageal reflux disease) BPH (benign prostatic hyperplasia) Hyperlipidemia Type 2 diabetes mellitus Hypertension Home Medications ?Medication ?Instructions ?Recorded ?Last Taken ?Type acetaminophen 500 mg tablet 500 mg PO Q8H PRN Pain 04/08/19 Unknown History (Tylenol Extra Strength) amitriptyline 25 mg tablet 25 mg PO QHS 04/08/19 Unknown History aspirin 81 mg chewable tablet 81 mg PO DAILY 04/08/19 Unknown History cyclobenzaprine 10 mg tablet 10 mg PO QHS PRN Spasms 04/08/19 Unknown History doxazosin 4 mg tablet 2 mg PO QHS 04/08/19 Unknown History insulin glargine 100 unit/mL (3 56 units subcut BID 04/08/19 Unknown History mL) subcutaneous pen (Lantus Solostar U-100 Insulin) lisinopril 20 mg tablet (Zestril) 20 mg PO DAILY 04/08/19 Unknown History meloxicam 15 mg tablet 15 mg PO DAILY 04/08/19 Unknown History metformin 500 mg tablet 1,000 mg PO BREAKFAST 04/08/19 Unknown History metformin 500 mg tablet 500 mg PO DINNER 04/08/19 Unknown History metformin 500 mg tablet 500 mg PO LUNCH 04/08/19 Unknown History ondansetron 4 mg disintegrating 4 mg PO Q8H PRN PRN Nausea #10 tabs 04/08/19 Unknown Rx tablet simvastatin 40 mg tablet 40 mg PO QHS 04/08/19 Unknown History tramadol 37.5 mg-acetaminophen 325 1 ea PO Q8H PRN Pain 04/08/19 Unknown History mg tablet (Ultracet) cyanocobalamin (vitamin B-12) 1,000 mcg PO DAILY 12/03/24 Unknown History 1,000 mcg tablet (Vitamin B-12) Allergy/AdvReac Type Severity Reaction Status Date / Time No Known Allergies Allergy Verified 12/03/24 14:46 Surgical History no surgical history no surgical history Social History Smoking Status: Never smoker ROS ROS ED Constitutional Constitutional ED: Denies chills or fever(s) Eyes Eyes: Denies blurry vision or change in vision ENT ENT ED: Denies rhinorrhea or sore throat Cardiovascular Cardiovascular: Denies chest pain or palpitations Respiratory/Chest Respiratory/Chest: Reports cough and dyspnea Gastrointestinal Gastrointestinal: Reports nausea; Denies vomiting Genitourinary Genitourinary ED: Denies dysuria or hematuria Musculoskeletal Musculoskeletal: Reports back pain; Denies neck pain Integumentary Denies abscess or rash Neurologic Neurologic: Reports weakness; Denies headache(s) Allergic/Immunologic Allergic/Immunologic ED: Denies mouth swelling or urticaria EXAM Physical Exam Const Vital Signs: 12/03/24 14:46 12/03/24 16:45 12/03/24 18:00 Temperature 97.5 F L Temperature Source Temporal Pulse Rate 102 H 73 73 Respiratory Rate 18 20 H 19 H Blood Pressure 119/73 139/68 H 137/72 H Blood Pressure Mean 88 91 93 Pulse Ox 97 97 97 Oxygen Delivery Method Room Air Room Air Room Air 12/03/24 18:06 Temperature 97.5 F L Temperature Source Pulse Rate 73 Respiratory Rate 19 H Blood Pressure 137/72 H Blood Pressure Mean 93 Pulse Ox 97 Oxygen Delivery Method Positive well nourished and well developed General Appearance ED: well developed and NAD HEENT Reports moist mucous membranes Neck supple and no JVD Resp normal respiratory effort and clear to auscultation bilaterally Cardio regular rate and regular rhythm GI non-tender and non-distended Palpation: soft Neuro oriented x3, CN's II-XII intact bilaterally and no sensory deficits noted Sensorium / Orientation: alert Motor Exam: strength 5/5 throughout Psych mental status grossly normal MDM MDM MDM Narrative Medical decision making narrative: Differential diagnosis includes hyperglycemia, diabetic ketoacidosis, hyperosmolar hyperglycemic nonketotic state, viral illness, dehydration, electrolyte abnormality, cardiac dysrhythmia, cardiac ischemia, pneumonia, and urinary tract infection. CBC will be obtained to assess for leukocytosis and anemia. Basic metabolic profile will be obtained to assess for hyperglycemia, electrolyte abnormality, and renal function. High-sensitivity troponin will be obtained to assess for cardiac ischemia. Urinalysis will be obtained to assess for urinary tract infection and glucosuria. Chest x-ray will be obtained to assess for pneumonia and pneumothorax. EKG will be obtained to assess for cardiac dysrhythmia and cardiac ischemia. COVID-19, influenza, and RSV PCR will be obtained to assess for viral illness. Lab Data Attestation: I reviewed the patient's lab results. Lab results narrative: CBC was reviewed. There is a mild anemia with a hemoglobin of 12.7 and hematocrit 37.5. The remainder is within normal limits. Basic metabolic profile was reviewed. Creatinine was elevated at 1.49. This is increased from previous result. Glucose was also elevated at 333. Sodium was normal. Anion gap was normal. High-sensitivity troponin was reviewed and was normal at 5. COVID-19 PCR was reviewed and was negative. Influenza PCR was reviewed and was negative for influenza A and influenza B. RSV PCR was reviewed and was negative. Urinalysis was reviewed. Urine glucose was 1000. There is no evidence of urinary tract infection or hematuria. Labs: Laboratory Results - last 24 hr 12/03/24 12/03/24 15:37 17:49 WBC 5.4 RBC 4.23 L Hgb 12.7 L Hct 37.5 L MCV 88.7 MCH 30.0 MCHC 33.9 RDW Std Deviation 41.0 RDW Coeff of Fiona 12.7 Plt Count 163 MPV 10.6 Immature Gran % (Auto) 0.200 Neut % (Auto) 68.2 Lymph % (Auto) 18.6 L Griggs % (Auto) 9.9 Eos % (Auto) 2.2 Baso % (Auto) 0.9 Absolute Neuts (auto) 3.7 Absolute Lymphs (auto) 1.00 Nucleated RBC % 0 Sodium 137 Potassium 4.8 Chloride 105 Carbon Dioxide 26.0 Anion Gap 6 BUN 12 Creatinine 1.49 H Estim Creat Clear Calc 46.11 Est GFR (MDRD) Af Amer 58 L Est GFR (MDRD) Non-Af 48 L BUN/Creatinine Ratio 8.1 L Glucose 333 H Calcium 8.9 Troponin I High Sens 5 Urine Color Yellow Urine Clarity Clear Urine pH 5.0 Ur Specific [place]verse 1.020 Urine Protein Negative Urine Glucose (UA) 1000 H Urine Ketones 5 H Urine Occult Blood Negative Urine Nitrite Negative Urine Bilirubin Negative Urine Urobilinogen Normal Ur Leukocyte Esterase Negative Urine RBC 0 SEEN Urine WBC 0-5 SEEN Ur Squamous Epith Cells 0-5 SEEN Urine Bacteria 1+ Hyaline Casts 5-10 SEEN Urine Mucus 0 SEEN Radiography Chest X-Ray - ED: 2 View, Read by ED Physician, Read by Radiologist and Normal Diagnostic Testing: Clinical Impression(s) from Imaging Studies Chest X-Ray 12/03/24 15:18 IMPRESSION: Normal x-ray examination of the chest. Electronically Signed: Bartolome Villasenor MD at 16:27 EST , PA and lateral chest x-ray was obtained. There are 2 views. On my independent interpretation, lung zepeda are clear. There is normal cardiac silhouette. Bony thorax is normal. There is no acute process noted. Radiologist also interpreted the x-ray and agrees. EKG Initial EKG: Attestation: I personally reviewed and interpreted this EKG as follows: Interpretation: Sinus Rhythm (With first-degree AV block with a rate of 82) and No Acute Injury Pattern Comments: EKG was obtained. On my independent interpretation, it showed a sinus rhythm with first-degree AV block with a rate of 82. NH interval, QRS interval, and QTc intervals were all normal. [place] was normal. There are no acute ST or T wave changes. Prior EKG tracings: available for review Prior: Unchanged (04/12/2019) Treatment and Re-Evaluation :: Patient was given IV fluids. Patient was advised of his findings. Case was discussed with hospitalist for admission for acute kidney injury. She will admit the patient to her service. Patient and spouse understood and were agreeable with the plan. All questions were answered. Discharge Plan Dx/Rx/DC Orders Clinical Impression: Acute kidney injury, Type 2 diabetes mellitus, General weakness, Hyperglycemia Disposition Disposition: [facility]
--- NOTE | 2024-12-03 15:18 | EKG12_ITS ---
Test Reason : HYPERGLYCEMIA Blood Pressure : */* mmHG Vent. Rate : 82 BPM Atrial Rate : 82 BPM P-R Int : 222 ms QRS Dur : 74 ms QT Int : 360 ms P-R-T Axes : 27 46 74 degrees QTcB Int : 420 ms Sinus rhythm with 1st degree A-V block Low voltage QRS Borderline ECG Confirmed by DOREEN CRUZ, LIO ([id number]), advertising editor LEX AGUILAR ([id number]) on 12/04/2024 2:06:55 PM Referred By: Confirmed By: LIO LOGAN MD
--- NOTE | 2024-12-03 15:18 | RAD_ITS ---
STUDY: X-RAY CHEST REASON FOR EXAM: Male, 84 years old. Cough TECHNIQUE: Frontal and lateral views of the chest. COMPARISON: None. FINDINGS: The lungs are clear and expanded. There is no demonstrated pleural abnormality. Normal size heart. Normal mediastinum and kristian. Normal visualized pulmonary arteries. Normal visualized aortic arch and descending thoracic aorta. Normal visualized thoracic spine. Normal visualized ribs, clavicles, and shoulders. There is no demonstrated abnormality of the visualized soft tissue structures of the upper abdomen. RAD/Chest PA and Lateral IMPRESSION: Normal x-ray examination of the chest. Electronically Signed: Bartolome Villasenor MD at 16:27 EST ,
[2024-12-03 15:53] LABS: Absolute Neutrophil Count 3.7 X10^3/uL (2.0-7.7); Basophil# 0.05 X10^3/uL; Basophil% 0.9 % (0-1); Eosinophil# 0.12 X10^3/uL; Eosinophils% 2.2 % (0-5); Hematocrit 37.5 % (40-54); Hemoglobin 12.7 g/dL (13.0-16.5); Lymphocyte % 18.6 % (19-41); Mean Corp Hgb Conc 33.9 g/dL (32-36); Mean Corpuscular Volume 88.7 fL (80-94); Mean Platelet Vol. 10.6 fl (6.2-12.0); Monocyte# 0.53 X10^3/uL; Monocyte% 9.9 % (0-10); NRBC Flagged by Analyzer 0 % (0-5); Neutrophil # 3.67 X10^3/uL (2.7-7.7); Neutrophil % 68.2 % (47-70); Platelet Count 163 K/mm3 (150-450); RBC Distribution Width CV 12.7 % (11.6-14.6); Red Blood Count 4.23 M/mm3 (4.6-6.2); White Blood Count 5.4 K/mm3 (4.4-11.0)
[2024-12-03] MEDS: 0.9% Normal Saline (1000mL) 1,000 ML 1000 ML IV ×2 (15:54→17:27)
[2024-12-03 16:07] LABS: Anion Gap 6 (5-15); BUN 12 mg/dL (7-18); BUN/Creat Ratio 8.1 RATIO (10-20); Calcium,Total 8.9 mg/dL (8.5-10.1); Chloride 105 mmol/L (98-107); Creatinine, Serum 1.49 mg/dL (0.70-1.30); EST Glomerular Filtration Rate 48 mL/min (>60); Est Glom Filt Rate - Afr Amer 58 mL/min (>60); Estimated Creatinine Clearance 46.11 ml/min; Glucose 333 mg/dL (74-106); Potassium 4.8 mmol/L (3.5-5.1); Sodium Level 137 mmol/L (136-145); Troponin-I HS 5 pg/mL (3.0-78.0)
[2024-12-03 16:45] VITALS: BP 139/68; PULSE 73; RESP 20; O2SAT 97
--- NOTE | 2024-12-03 17:30 | ED.RN ---
Patient prompted x2 for a urine sample.
[2024-12-03 17:55] LABS: Mucous, Urine 0 SEEN /hpf (<or=2+); Red Blood Cells-Urine 0 SEEN /hpf (0-5)
[2024-12-03 18:00] VITALS: BP 137/72; PULSE 73; RESP 19; O2SAT 97
[2024-12-03 18:03] LABS: Color, Urine Yellow (Yellow); Glucose, Dipstick 1000 mg/dl (Normal); Ketone-Dipstick 5 mg/dl (Negative); Leukocyte Esterase-Dipstick Negative /ul (Negative); Nitrite-Dipstick Negative (Negative); Occult Blood-Urine Negative /ul (Negative); Protein-Dipstick Negative (Negative); Urine Bilirubin Dipstick Negative (Negative); Urine Clarity Clear (Clear); Urine Urobilinogen Normal (Normal)
[2024-12-03 18:06] VITALS: BP 137/72; PULSE 73; RESP 19; TEMP 36.4; O2SAT 97
[2024-12-03 18:10] LABS: Bacteria 1+ /hpf (None Seen); Hyaline Cast 5-10 SEEN /lpf (0-5); Squamous Epithelial Cells - UA 0-5 SEEN /hpf (0-5); White Blood Cells 0-5 SEEN /hpf (0-5)
--- NOTE | 2024-12-03 18:19 | HP.PCM.HOS_ITS ---
HPI - General General Date of Admission: 12/03/24 Date of Service: 12/03/24 Chief Complaint: Fall, weakness, recent URI symptoms, nausea, poor intake. HPI Narrative The patient is an 84 y/o M w/ PMHx: CKD stage II, Obesity, Chronic back pain with lumbar spondylosis with previous back injections, GERD, BPH with obstructive pathology, HTN, HLD, Diabetes mellitus type II who presents to the [facility] ED on 12/03/24 with history of 24 to 48 hours of increased fatigue, malaise, mild dyspnea with exertion, nonproductive cough, nausea without emesis and significant decline in his appetite reporting that he was hardly able to eat today and only ate a small portion of his breakfast and when he was coming back into the house which she has steps specifically 6 to get into the house with his while attempting to carry groceries he became so weak and debilitated that he fell on the steps and notes that his legs just would not work prompting call for EMS and transition to the ED for evaluation. is also present and notes that she is felt fine herself. No specific history of bright red blood per rectum, hematemesis or any dark black appearing stools. Workup in the ED included T97.5, heart rate 102, BP 119/73, respiratory rate 18, 97% on room air with most recent repeat vitals T97.5, heart rate 73, BP 137/72, respiratory rate 19, 97% on room air, CBC with WBC 5.7, human 12.7, MCV 88.7, platelet 163 without marked shift, BMP with BUN/creatinine 12/1.49, GFR 48, glucose 333, troponin 5, urinalysis with glucose of thousand, ketone 5, negative nitrite, negative leukocyte esterase, no urine RBCs, WBCs with 1+ bacteria, rapid SARS COVID/influenza/RSV PCR negative, chest x-ray with no acute cardiopulmonary findings. In the ED patient ministered 2 L normal saline. [facility] Medical History Obesity CKD (chronic kidney disease), stage II Lumbar spondylosis GERD (gastroesophageal reflux disease) BPH (benign prostatic hyperplasia) Hyperlipidemia Type 2 diabetes mellitus Hypertension Home Medications ?Medication ?Instructions ?Recorded ?Last Taken ?Type acetaminophen 500 mg tablet 500 mg PO Q8H PRN Pain 04/08/19 Unknown History (Tylenol Extra Strength) amitriptyline 25 mg tablet 25 mg PO QHS 04/08/19 Unknown History aspirin 81 mg chewable tablet 81 mg PO DAILY 04/08/19 Unknown History cyclobenzaprine 10 mg tablet 10 mg PO QHS PRN Spasms 04/08/19 Unknown History doxazosin 4 mg tablet 2 mg PO QHS 04/08/19 Unknown History insulin glargine 100 unit/mL (3 56 units subcut BID 04/08/19 Unknown History mL) subcutaneous pen (Lantus Solostar U-100 Insulin) lisinopril 20 mg tablet (Zestril) 20 mg PO DAILY 04/08/19 Unknown History meloxicam 15 mg tablet 15 mg PO DAILY 04/08/19 Unknown History metformin 500 mg tablet 1,000 mg PO BREAKFAST 04/08/19 Unknown History metformin 500 mg tablet 500 mg PO DINNER 04/08/19 Unknown History metformin 500 mg tablet 500 mg PO LUNCH 04/08/19 Unknown History ondansetron 4 mg disintegrating 4 mg PO Q8H PRN PRN Nausea #10 tabs 04/08/19 Unknown Rx tablet simvastatin 40 mg tablet 40 mg PO QHS 04/08/19 Unknown History tramadol 37.5 mg-acetaminophen 325 1 ea PO Q8H PRN Pain 04/08/19 Unknown History mg tablet (Ultracet) cyanocobalamin (vitamin B-12) 1,000 mcg PO DAILY 12/03/24 Unknown History 1,000 mcg tablet (Vitamin B-12) Allergy/AdvReac Type Severity Reaction Status Date / Time No Known Allergies Allergy Verified 12/03/24 14:46 Family History (Updated 12/03/24 @ 18:[address] Katy Nolasco MD) Mother Cancer Father No problems noted. Surgical History No history of previous surgery Surgical History no surgical history Social History (Updated 12/03/24 @ 18:[address] Katy Nolasco MD) household members: spouse Smoking Status: Never smoker alcohol intake: never substance use type: does not use ROS ROS Narrative Admission Review of Systems: CONSTITUTIONAL: No weight loss, fever, chills, + weakness or fatigue. HEENT: + Mild congestion. Eyes: No visual loss, blurred vision, double vision or yellow sclerae. Ears, Nose, Throat: No hearing loss, sneezing, sore throat. SKIN: No rash or itching, lesions, wounds. CARDIOVASCULAR: No chest pain, chest pressure or chest discomfort, palpitations, edema, orthopnea, syncopal events. RESPIRATORY: + Mild cough without marked sputum production, occasional dyspnea sensation. No wheezing or hemoptysis. GASTROINTESTINAL: + Lack of appetite/anorexia, nausea. No vomiting or diarrhea, abdominal pain, melena, BRBPR. GENITOURINARY: No dysuria, frequency, urgency or retention. NEUROLOGICAL: + Debility/weakness, fall. No headache, dizziness, syncope, paralysis, ataxia, numbness or tingling in the extremities, focal weakness, change in bowel or bladder control, seizure. MUSCULOSKELETAL: + muscle, back pain, joint pain or stiffness. HEMATOLOGIC: + Labs currently evident of anemia, no prior history, denies any marked easy bleeding/bruising. LYMPHATICS: No enlarged nodes. No history of splenectomy. PSYCHIATRIC: No history of depression or anxiety. ENDOCRINOLOGIC: + Currently reports of sweating, cold or heat intolerance. No polyuria or polydipsia. ALLERGIES: No history of asthma, hives, eczema or rhinitis. Vital Signs Vital Signs Vital Signs: 12/03/24 14:46 12/03/24 16:45 12/03/24 18:00 Temperature 97.5 F L Temperature Source Temporal Pulse Rate 102 H 73 73 Respiratory Rate 18 20 H 19 H Blood Pressure 119/73 139/68 H 137/72 H Blood Pressure Mean 88 91 93 Pulse Ox 97 97 97 Oxygen Delivery Method Room Air Room Air Room Air 12/03/24 18:06 Temperature 97.5 F L Temperature Source Pulse Rate 73 Respiratory Rate 19 H Blood Pressure 137/72 H Blood Pressure Mean 93 Pulse Ox 97 Oxygen Delivery Method Weight Weight: 221 lb 1.6 oz Body Mass Index (BMI) 30.8 Physical Exam Narrative Physical Examination: General: Awake, alert, oriented x 3 and cooperative, laying in the ED bed, fatigued, notes feeling under the weather. Skin: Normal color, normal turgor, no icterus, no cyanosis. HEENT: AT/NC, EOMI, PERRLA, dry MM, no carotid bruits or JVD noted; however, thickened neck makes evaluation. Lungs: Diminished, greater bases, mildly increased respiratory rate but no distress, no rales, ronchi or wheezing. Heart: Regular rate and rhythm; no gallop, rub audible. Abdomen: Soft, obese, NTTP, ND, mildly hyperactive BS, no appreciated HSM. Extremities: No cyanosis, no clubbing, mild ankle not markedly pitting edema Neurological: Patient awake, alert, oriented as noted, cognitive function suspect mildly decreased from baseline given presentation but likely nearing, pupils equally reactive to light and accommodation, cranial nerves gross normal, moving all 4 extremities, no focal deficits, strength moderately to severely globally decreased. Psychiatric: Affect appears flat, fatigued no acute evidence of depressive or anxiety feelings. Results Lab / Micro Data 12/03/24 15:37 12/03/24 15:37 Labs: Laboratory Results - last 24 hr 12/03/24 15:37: WBC 5.4, RBC 4.23 L, Hgb 12.7 L, Hct 37.5 L, MCV 88.7, MCH 30.0, MCHC 33.9, RDW Std Deviation 41.0, RDW Coeff of Fiona 12.7, Plt Count 163, MPV 10.6, Immature Gran % (Auto) 0.200, Neut % (Auto) 68.2, Lymph % (Auto) 18.6 L, Lamb % (Auto) 9.9, Eos % (Auto) 2.2, Baso % (Auto) 0.9, Absolute Neuts (auto) 3.7, Absolute Lymphs (auto) 1.00, Nucleated RBC % 0, Sodium 137, Potassium 4.8, Chloride 105, Carbon Dioxide 26.0, Anion Gap 6, BUN 12, Creatinine 1.49 H, Estim Creat Clear Calc 46.11, Est GFR (MDRD) Af Amer 58 L, Est GFR (MDRD) Non-Af 48 L, BUN/Creatinine Ratio 8.1 L, Glucose 333 H, Calcium 8.9, Troponin I High Sens 5 12/03/24 17:49: Urine Color Yellow, Urine Clarity Clear, Urine pH 5.0, Ur Specific [place] 1.020, Urine Protein Negative, Urine Glucose (UA) 1000 H, Urine Ketones 5 H, Urine Occult Blood Negative, Urine Nitrite Negative, Urine Bilirubin Negative, Urine Urobilinogen Normal, Ur Leukocyte Esterase Negative, Urine RBC 0 SEEN, Urine WBC 0-5 SEEN, Ur Squamous Epith Cells 0-5 SEEN, Urine Bacteria 1+, Hyaline Casts 5-10 SEEN, Urine Mucus 0 SEEN Micro: Microbiology 12/03/24 15:26 Mucosa - Nose SARS-CoV-2, Influenza & RSV (PCR) - Final Imaging Radiology Impression Chest X-Ray 12/03/24 15:18 IMPRESSION: Normal x-ray examination of the chest. Electronically Signed: Bartolome Villasenor MD at 16:27 EST Reading Location ID and State: [facility] / [place] Tel , Service support , Assessment & Plan Assessment/Plan (1) Acute kidney injury: PLAN: Plan The patient is an 84 y/o M w/ PMHx: CKD stage II, Obesity, Chronic back pain with lumbar spondylosis with previous back injections, GERD, BPH with obstructive pathology, HTN, HLD, Diabetes mellitus type II who presents to the [facility] ED on 12/03/24 with history of 24 to 48 hours of increased fatigue, malaise, mild dyspnea with exertion, nonproductive cough, nausea without emesis and significant decline in his appetite reporting that he was hardly able to eat today and only ate a small portion of his breakfast and when he was coming back into the house which she has steps specifically 6 to get into the house with his while attempting to carry groceries he became so weak and debilitated that he fell on the steps and notes that his legs just would not work prompting call for EMS and transition to the ED for evaluation. #1. Recent URI symptoms w/ nausea, decreased intake, worsening weakness, debility, Adult FTT potentially secondary to Acute Viral Syndrome: Will admit to medical surgical floor given acute kidney injury and significant weakness with expectation that patient likely will require at least 2-day admission and potentially skilled needs, will judiciously hydrate, will obtain full respiratory viral panel and procalcitonin, will continue treatment of acute kidney injury as noted with repeat CMP in the a.m., will maintain on fall precautions, encourage oral intake, PT/OT/case management consulted for discharge planning. #2. Acute kidney injury on CKD stage II: Secondary to decreased oral intake with acute presentation as noted #1. Admission BUN/Cr 10/22.49, GFR 48, prior baseline creatinine noted to be primarily 0.7-0.8. Will hydrate, hold nephrotoxic medications and repeat chemistry in AM. If no improvement would plan FeNa and renal ultrasound assessment. Urinalysis not marked appearing. #3. Diabetes mellitus type II with hyperglycemia: Admission glucose 333, likely secondary to stress response with acute possibly viral illness as noted above but to be cautious hemoglobin A1c requested, will hold oral home regimen, continue home insulin regimen with hold parameters or decrease as needed pending blood sugar trending, will trial ADA diet but certainly may alter if persistent nausea or any bouts of emesis occur, accu checks w/ ISS. #4. Normocytic anemia, appears new and chronicity but labs are remote: Admission hemoglobin 12.7, MCV 88.7, baseline noted previously 14-15, last labs noted 03/17/22 hemoglobin 14.1 at that time, will obtain iron panel, ferritin, guaiac to be cautious in case contributing to debility and unclear if this has been a more acute event, continue to trend CBC. #5. Hypertension: Will hold patient home lisinopril given MARYLU, resume once appropriate, as needed IV hydralazine in the interim. #6. Hyperlipidemia: Will continue patient home statin therapy #7. Obesity: Weight loss and lifestyle changes encouraged. #8. BPH with obstructive pathology: We will continue patient home doxazosin regimen, monitor for any retention pattern. #9. DVT prophylaxis: Lovenox. #10. CODE status: Patient does not have healthcare power of attorney law clerk or living will in place but notes his who is present would be his medical decision- maker first and then his son would be second he notes. Discussed CODE status at length including difference between FULL code, DNR-CCA and DNR-CC status. Following discussions about the differences in these status, requested Full Code status. Advanced Care Planning Face to Face Time: 16 minutes. Charges/Coding Visit Charges Inpatient E&M: 96447 Init Hosp L3 Procedures Hospitalists Procedures: 62026 Advncd Care Plan 30 Min
--- NOTE | 2024-12-03 18:36 | ED.RN ---
Patient given ham and cheese sandwich, yogurt, veronica doones, and sugar free sprite. Patient repositioned and scooted up in bed.
[2024-12-03 19:11] LABS: Magnesium 1.8 mg/dL (1.6-2.6)
[2024-12-03 19:33] LABS: Procalcitonin 0.07 ng/mL (0.00-0.09)
[2024-12-03 20:00] VITALS: BP 152/84; PULSE 75; RESP 14; O2SAT 96
[2024-12-03 20:35] VITALS: BP 142/77; PULSE 70; RESP 14; TEMP 36.3; O2SAT 97
[2024-12-03] MEDS: 0.9% Normal Saline (1000mL) 1,000 ML 100 ML IV (20:45)
[2024-12-03] MEDS: Atorvastatin Calcium 20 MG Tablet PO (21:10)
[2024-12-03] MEDS: Amitriptyline 25 MG Tablet PO (21:10)
[2024-12-03] MEDS: Insulin Glargine-YFGN 100 UNIT/ML Pen 56 UNIT SC (21:11)
[2024-12-03] MEDS: Doxazosin 1 MG Tablet 2 MG PO (21:11)
[2024-12-03 21:31] LABS: Bedside Glucose 131 mg/dL (74-106)
[2024-12-04 02:30] VITALS: BP 131/76; PULSE 64; RESP 14; TEMP 36.1; O2SAT 97
[2024-12-04 04:49] VITALS: BMI 31.2
[2024-12-04 05:06] LABS: Absolute Lymphocyte Count 1.55 X10^3/uL (0.83-4.51); Absolute Neutrophil Count 2.9 X10^3/uL (2.0-7.7); Basophil# 0.04 X10^3/uL; Basophil% 0.8 % (0-1); Eosinophil# 0.19 X10^3/uL; Eosinophils% 3.6 % (0-5); Hematocrit 32.3 % (40-54); Hemoglobin 11.1 g/dL (13.0-16.5); Lymphocyte # 1.55 X10^3/ul (0.83-4.51); Lymphocyte % 29.7 % (19-41); Mean Corp Hgb Conc 34.4 g/dL (32-36); Mean Corpuscular Hgb 30.4 pg (27.0-32.0); Mean Corpuscular Volume 88.5 fL (80-94); Mean Platelet Vol. 11.7 fl (6.2-12.0); Monocyte# 0.56 X10^3/uL; Monocyte% 10.7 % (0-10); NRBC Flagged by Analyzer 0 % (0-5); Neutrophil # 2.86 X10^3/uL (2.7-7.7); Neutrophil % 54.8 % (47-70); Platelet Count 165 K/mm3 (150-450); RBC Distribution Width CV 12.7 % (11.6-14.6); RBC Distribution Width SD 40.9 fl (35.1-43.9); Red Blood Count 3.65 M/mm3 (4.6-6.2); White Blood Count 5.2 K/mm3 (4.4-11.0)
[2024-12-04] MEDS: 0.9% Normal Saline (1000mL) 1,000 ML 100 ML IV (06:40)
[2024-12-04 07:11] LABS: AST(SGOT) 20 U/L (15-37); Alanine Aminotransfer ALT/SGPT 25 U/L (16-61); Alkaline Phosphatase 46 U/L (45-117); Anion Gap 5 (5-15); BUN 11 mg/dL (7-18); BUN/Creat Ratio 11.8 RATIO (10-20); Calcium,Total 8.2 mg/dL (8.5-10.1); Chloride 112 mmol/L (98-107); Creatinine, Serum 0.94 mg/dL (0.70-1.30); EST Glomerular Filtration Rate 82 mL/min (>60); Est Glom Filt Rate - Afr Amer 99 mL/min (>60); Estimated Creatinine Clearance 73.59 ml/min; Ferritin 26 ng/mL (26-388); Globulin 2.9 g/dL (2.2-4.2); Glucose 92 mg/dL (74-106); Iron 67 ug/dL (65-175); Iron Binding Capacity,Total 274 ug/dL (250-450); PERCENT IRON SATURATION 24.5 % (15.0-55.0); Potassium 3.9 mmol/L (3.5-5.1); Protein, Total 5.9 g/dL (6.4-8.2); Sodium Level 141 mmol/L (136-145)
[2024-12-04 07:50] LABS: Hemoglobin A1c 9.6 % (3.8-5.6)
[2024-12-04 08:24] VITALS: BP 131/67; PULSE 69; RESP 14; TEMP 36.2; O2SAT 96
[2024-12-04] MEDS: Enoxaparin 40 MG/0.4 ML Syringe SC (08:26)
[2024-12-04] MEDS: Aspirin 81 MG TAB.CHEW PO (08:26)
--- NOTE | 2024-12-04 11:12 | CASEMGMT ---
RN CM Assessment Face to Face with patient for initial transition planning/care coordination assessment. RN CM introduced self and role at [facility], pt voices understanding. Pt is A&Ox4 and is resting comfortably in bed and is calm. Pt son at bedside. Care providers, pharmacy, and demographics verified. Admitting dx: Fall, Debility, Adult FTT, MARYLU LACE Strata: 2 PCP: Harrison Doss Specialists: Denies Preferred Pharmacy: [facility] Insurance: [employer] Prescription Benefit: Yes LNOK: Iris Darshan (W), Jonah Sexton (Son) Living Arrangements: Pt lives with his in a 2 story home with a FFSU with 6 step to enter the home. Pt fell coming up the steps after getting groceries prior to admission ADLs/IADLs: Reports ind Transportation: Self, son. Denies concerns DME: Functioning BGM with sufficient supplies. BP Machine. Crutches. Due to the pt fall, this RN CM inquired if the pt has a MAS. Pt denies. Resources provided to the pt. HHC/SNF: Denies Hx or needs Pt?s goal: Return home Today Plan: Anticipate home, no needs. There is no 6-Click score entered but PT and OT are ordered and pending. At this time, the pt states that he is ind and wants to DC home today and denies the need for HHC, OP Tx, or CCN. Pt states that he feels safe returning home with his today. Pt son states that he lives right next door as well if any needs arise. Pt and pt son deny further questions or concerns at this time. CM to follow therapy evaluations. Domingo Sexton RN, CM
--- NOTE | 2024-12-04 11:18 | CASEMGMT ---
Social Work- SW participated in interdisciplinary rounds on pt. SW remains available to follow for therapy recommendations at discharge. TIFFANIE Giordano
[2024-12-04 11:39] LABS: Bedside Glucose 124 mg/dL (74-106)
--- NOTE | 2024-12-04 14:14 | DCINST_ITS ---
Discharge Instructions Diet Discharge Diet: 1800 Calorie Control Diet DC O2, CPAP, BIPAP needs Home O2 Discharge instructions: No Dressing / Incision Discharge Activity: Return to Normal Activity Weight Bearing Status: Full weight bearing Follow Up Care Test Results: Test results from this visit will be discussed in further detail at your follow- up appointment, if applicable. Discharge Plan Admission Admit Date/Time: 12/03/24 18:19 Primary Reason for Your Visit: Debility Attending Provider: Ajit Mccall Primary Care Provider: Harrison Doss Consulting Providers: Katy Nolasco Discharge Orders/Prescriptions Prescriptions: Continued cyclobenzaprine 10 MG tablet 10 mg PO QHS PRN (Reason: Spasms) metformin 500 MG tablet 1,000 mg PO BREAKFAST metformin 500 MG tablet 500 mg PO LUNCH metformin 500 MG tablet 1,000 mg PO DINNER lisinopril [Zestril] 20 MG tablet 20 mg PO DAILY acetaminophen [Tylenol Extra Strength] 500 MG tablet 500 mg PO Q8H PRN (Reason: Pain) simvastatin 40 MG tablet 40 mg PO QHS amitriptyline 25 MG tablet 25 mg PO QHS doxazosin 4 MG tablet 2 mg PO QHS aspirin 81 MG tablet,chewable 81 mg PO DAILY insulin glargine [Lantus Solostar U-100 Insulin] 100 UNITS/ML insulin pen 46 units subcut BID ondansetron 4 MG tablet 4 mg PO Q8H PRN PRN (Reason: Nausea) Qty: 10 0RF cyanocobalamin (vitamin B-12) [Vitamin B-12] 1,000 mcg tablet 1,000 mcg PO DAILY Referrals / Follow Up: Harrison Doss MD [Primary Care Provider] - Within 2 Weeks Disposition Disposition (needs filled in before D/C Order can be placed): Home, Self Care
--- NOTE | 2024-12-04 14:19 | PCM.DC.SUM ---
Providers Date of Admission: 12/03/24 Date of Discharge: 12/04/24 Primary Care Physician: Dr. Harrison Doss MD Reason For Visit: FALL, DEBILITY, ADULT FTT, MARYLU Diagnosis Discharge Diagnosis (1) Acute kidney injury: Status: Acute Code(s): N17.9 - Acute kidney failure, unspecified Plan 1. Acute generalized weakness/debility #2 acute kidney injury #3 type 2 diabetes #4 essential hypertension Medications at Discharge Home Medications acetaminophen 500 mg tablet (Tylenol Extra Strength) 500 mg PO Q8H PRN Pain 04/08/19 amitriptyline 25 mg tablet 25 mg PO QHS 04/08/19 aspirin 81 mg chewable tablet 81 mg PO DAILY 04/08/19 cyclobenzaprine 10 mg tablet 10 mg PO QHS PRN Spasms 04/08/19 doxazosin 4 mg tablet 2 mg PO QHS 04/08/19 insulin glargine 100 unit/mL (3 mL) subcutaneous pen (Lantus Solostar U-100 Insulin) 46 units subcut BID 04/08/19 lisinopril 20 mg tablet (Zestril) 20 mg PO DAILY 04/08/19 metformin 500 mg tablet 1,000 mg PO BREAKFAST 04/08/19 metformin 500 mg tablet 1,000 mg PO DINNER 04/08/19 metformin 500 mg tablet 500 mg PO LUNCH 04/08/19 ondansetron 4 mg disintegrating tablet 4 mg PO Q8H PRN PRN Nausea #10 tabs 04/08/19 simvastatin 40 mg tablet 40 mg PO QHS 04/08/19 cyanocobalamin (vitamin B-12) 1,000 mcg tablet (Vitamin B-12) 1,000 mcg PO DAILY 12/03/24 Hospital Course Operations None Procedures None Summary of Care Provided Minutes Spent on Discharge: 30 Hospital Course: This 84-year-old white male was seen in the emergency room [facility] with a chief complaint of generalized weakness and inability to perform ADLs. Workup in the emergency room showed the patient have mild anemia, creatinine was elevated at 1.49 and glucose was 333. Troponin was unremarkable, COVID-19 PCR was negative, patient was also negative for influenza and RSV. There was no evidence of urinary tract infection as indicated by his UA. Chest x-ray was unremarkable. Patient was admitted to [facility] and given IV fluids, he was seen by PT and OT, the next day the patient's creatinine was normal at 0.94. Patient felt better and able to be discharged home. On 12/04/2024, patient was seen and examined: On examination he appeared in good health and spirits. Vital signs as documented. Skin warm and dry and without overt rashes. Neck without JVD, neck was supple, trachea midline, thyroid was normal. Lungs clear bilaterally, normal air movement was noted. Heart exam notable for regular rhythm, normal sounds and absence of murmurs, rubs or gallops. Abdomen unremarkable and without evidence of organomegaly, masses, or abdominal aortic enlargement. Bowel sounds are present, abdomen is not distended. Extremities nonedematous, no cyanosis was noted, no clubbing was noted. Neuro: Cranial nerves II through XII are grossly intact, no focal motor deficits were noted, sensation to light touch and pinprick intact, motor exam 5/5 throughout. Psych: Patient is alert and oriented x3, he does not appear anxious or depressed, he does not appear agitated. Patient was discharged home in stable condition on 12/04/2024. Weight / BMI Weight Weight: 101.741 kg Body Mass Index (BMI) 31.2 ABG / Lab / Microbiology Data 12/04/24 04:55 12/04/24 06:23 Laboratory: Laboratory Results - last 24 hr 12/03/24 15:37: WBC 5.4, RBC 4.23 L, Hgb 12.7 L, Hct 37.5 L, MCV 88.7, MCH 30.0, MCHC 33.9, RDW Std Deviation 41.0, RDW Coeff of Fiona 12.7, Plt Count 163, MPV 10.6, Immature Gran % (Auto) 0.200, Neut % (Auto) 68.2, Lymph % (Auto) 18.6 L, Foster % (Auto) 9.9, Eos % (Auto) 2.2, Baso % (Auto) 0.9, Absolute Neuts (auto) 3.7, Absolute Lymphs (auto) 1.00, Nucleated RBC % 0, Sodium 137, Potassium 4.8, Chloride 105, Carbon Dioxide 26.0, Anion Gap 6, BUN 12, Creatinine 1.49 H, Estim Creat Clear Calc 46.11, Est GFR (MDRD) Af Amer 58 L, Est GFR (MDRD) Non-Af 48 L, BUN/Creatinine Ratio 8.1 L, Glucose 333 H, Calcium 8.9, Magnesium 1.8, Troponin I High Sens 5 12/03/24 17:49: Urine Color Yellow, Urine Clarity Clear, Urine pH 5.0, Ur Specific [place] 1.020, Urine Protein Negative, Urine Glucose (UA) 1000 H, Urine Ketones 5 H, Urine Occult Blood Negative, Urine Nitrite Negative, Urine Bilirubin Negative, Urine Urobilinogen Normal, Ur Leukocyte Esterase Negative, Urine RBC 0 SEEN, Urine WBC 0-5 SEEN, Ur Squamous Epith Cells 0-5 SEEN, Urine Bacteria 1+, Hyaline Casts 5-10 SEEN, Urine Mucus 0 SEEN 12/03/24 19:00: Procalcitonin 0.07 12/03/24 21:08: POC Glucose 131 H 12/04/24 04:55: WBC 5.2, RBC 3.65 L, Hgb 11.1 L, Hct 32.3 L, MCV 88.5, MCH 30.4, MCHC 34.4, RDW Std Deviation 40.9, RDW Coeff of Fiona 12.7, Plt Count 165, MPV 11.7, Immature Gran % (Auto) 0.400, Neut % (Auto) 54.8, Lymph % (Auto) 29.7, Foster % (Auto) 10.7 H, Eos % (Auto) 3.6, Baso % (Auto) 0.8, Absolute Neuts (auto) 2.9, Absolute Lymphs (auto) 1.55, Nucleated RBC % 0, Sodium Cancelled, Potassium Cancelled, Chloride Cancelled, Carbon Dioxide Cancelled, Anion Gap Cancelled, BUN Cancelled, Creatinine Cancelled, Estim Creat Clear Calc Cancelled, Est GFR (MDRD) Af Amer Cancelled, Est GFR (MDRD) Non-Af Cancelled, BUN/Creatinine Ratio Cancelled, Glucose Cancelled, Hemoglobin A1c 9.6 H, Calcium Cancelled, Iron Cancelled, TIBC Cancelled, Iron Saturation Cancelled, Ferritin Cancelled, Total Bilirubin Cancelled, AST Cancelled, ALT Cancelled, Alkaline Phosphatase Cancelled, Total Protein Cancelled, Albumin Cancelled, Globulin Cancelled, Albumin/Globulin Ratio Cancelled 12/04/24 06:23: Sodium 141, Potassium 3.9, Chloride 112 H, Carbon Dioxide 24.0, Anion Gap 5, BUN 11, Creatinine 0.94, Estim Creat Clear Calc 73.59, Est GFR (MDRD) Af Amer 99, Est GFR (MDRD) Non-Af 82, BUN/Creatinine Ratio 11.8, Glucose 92, Calcium 8.2 L, Iron 67, TIBC 274, Iron Saturation 24.5, Ferritin 26, Total Bilirubin 0.60, AST 20, ALT 25, Alkaline Phosphatase 46, Total Protein 5.9 L, Albumin 3.0 L, Globulin 2.9, Albumin/Globulin Ratio 1.0 12/04/24 11:21: POC Glucose 124 H Microbiology: Microbiology 12/03/24 21:50 Mucosa - Nasopharyngeal Respiratory Panel (PCR) - Final Rhinovirus 12/03/24 15:26 Mucosa - Nose SARS-CoV-2, Influenza & RSV (PCR) - Final Radiography Diagnostic Testing: Radiology Impression Chest X-Ray 12/03/24 15:18 IMPRESSION: Normal x-ray examination of the chest. Electronically Signed: Bartolome Villasenor MD at 16:27 EST Reading Location ID and State: [facility] / [place] Tel , Service support , D/C Instructions Discharge Diet: 1800 Calorie Control Diet Weight Bearing Status: Full weight bearing DC O2, CPAP, BIPAP Needs Home O2 Discharge instructions: No Meaningful Use Info Meaningful Use Meaningful Use Diagnoses (Choose all that apply): None applicable Ischemic Stroke Statin Dosing Therapy Reference: STATIN DOSE THERAPY REFERENCE: * Patients > 75 years receive moderate or high dose statin therapy. * Patients 75 years or YOUNGER should receive HIGH intensity statin dose unless contraindicated. You will be required to document reason for non-treatment if statin daily dose does not meet guidelines. HIGH DOSE STATIN THERAPY DAILY Atorvastatin > than or = to 40 mg Rosuvastatin > than or = to 20 mg Amlodipine + Atorvastatin > than or = to 2.5/40 mg Ezetimibe + Simvastatin 10/80 mg Simvastatin 80mg Discharge Plan Admission Admit Date/Time: 12/03/24 18:19 Primary Reason for Your Visit: Debility Attending Provider: Ajit Mccall Primary Care Provider: Harrison Doss Consulting Providers: Katy Nolasco Discharge Orders/Prescriptions Prescriptions: Continued cyclobenzaprine 10 MG tablet 10 mg PO QHS PRN (Reason: Spasms) metformin 500 MG tablet 1,000 mg PO BREAKFAST metformin 500 MG tablet 500 mg PO LUNCH metformin 500 MG tablet 1,000 mg PO DINNER lisinopril [Zestril] 20 MG tablet 20 mg PO DAILY acetaminophen [Tylenol Extra Strength] 500 MG tablet 500 mg PO Q8H PRN (Reason: Pain) simvastatin 40 MG tablet 40 mg PO QHS amitriptyline 25 MG tablet 25 mg PO QHS doxazosin 4 MG tablet 2 mg PO QHS aspirin 81 MG tablet,chewable 81 mg PO DAILY insulin glargine [Lantus Solostar U-100 Insulin] 100 UNITS/ML insulin pen 46 units subcut BID ondansetron 4 MG tablet 4 mg PO Q8H PRN PRN (Reason: Nausea) Qty: 10 0RF cyanocobalamin (vitamin B-12) [Vitamin B-12] 1,000 mcg tablet 1,000 mcg PO DAILY Referrals / Follow Up: Harrison Doss MD [Primary Care Provider] - Within 2 Weeks Disposition Disposition (needs filled in before D/C Order can be placed): Home, Self Care Charges/Coding Visit Charges Inpatient E&M: 02931 Disch Hosp
[2024-12-04 14:30] VITALS: BP 149/75; PULSE 70; RESP 18; TEMP 36.4; O2SAT 96
--- NOTE | 2024-12-04 14:47 | CASEMGMT ---
Pt has an order for DC placed. PT and OT state to this RN CM that the pt did well today during the evaluations. Per OT note, no additional therapy recommended. However, per the PT note, additional therapy was recommended (HH). This RN CM to pt room at this time. Pt son at bedside. Pt states that he believes that therapy went well today and that he is ready to go home. This RN CM explained that PT is recommending additional therapy. However, pt declines this need and states that he has enough support at home already. Pt denies the need for HH, OP Tx, or CCN. Pt educated that if he changes his mind that he can go through his PCP for additional rehabilitation services. Pt and pt son states understanding. Pt states that he has exercises that he has that he can do at home to improve his strength. Pt denies further questions or concerns at this time. Pt RN updated.
== END 2024-12-04 15:06 | disposition home or self-care (01) | DRG 683 ==
LOC: ED 18:00 → ICU 19:34
PROVIDERS: Admitting Provider Family Medicine; Emergency Provider Emergency Medicine; PCP Family Medicine; Visit Provider Internal Medicine
DX: N17.9 Acute kidney failure, unspecified (principal); N13.8 Other obstructive and reflux uropathy; D63.1 Anemia in chronic kidney disease; R62.7 Adult failure to thrive; E11.22 Type 2 diabetes mellitus with diabetic chronic kidney disease; I12.9 Hypertensive chronic kidney disease with stage 1 through stage 4 chronic kidney disease, or unspecified chronic kidney disease; E66.9 Obesity, unspecified; E11.65 Type 2 diabetes mellitus with hyperglycemia; N18.2 Chronic kidney disease, stage 2 (mild); E78.5 Hyperlipidemia, unspecified; Z79.4 Long term (current) use of insulin; R53.1 Weakness; R53.81 Other malaise; N40.1 Benign prostatic hyperplasia with lower urinary tract symptoms; Z68.30 Body mass index [BMI] 30.0-30.9, adult; Z79.82 Long term (current) use of aspirin; Z79.84 Long term (current) use of oral hypoglycemic drugs; Z79.899 Other long term (current) drug therapy
CPT/HCPCS: 71046; 80048; 80053; 81001; 82728; 82962; 83036; 83540; 83550; 83735; 84145; 84484; 85025; 87631; 87633; 93005; 94668; 97162; 97165; 99285; A4216